=== PATIENT | male | born 1945 | race Caucasian/White ===

== ENCOUNTER 2022-07-07 14:35 | Outpatient (CLI) | payer MEDICARE | END 2022-07-07 14:36 | disposition home or self-care (01) | LOC: BURRAD 14:35 | PROVIDERS: ATTEND Family Medicine | DX: M54.50 Low back pain, unspecified (principal); G89.29 Other chronic pain; M51.36 Other intervertebral disc degeneration, lumbar region | CPT/HCPCS: 72110 ==